=== PATIENT | female | born 1980 | race American Indian/Alaskan Native ===

== ENCOUNTER 2021-05-19 21:30 | Emergency (ER) | payer SELFPAY ==
[2021-05-20 00:57] VITALS: BP 114/54
[2021-05-20] MEDS ORDERED: ACETAMINOPHEN 500 MG TAB PO ONE (01:19)
[2021-05-20 01:46] LABS: Basophils # (Auto) 0.1 K/mm3 (0.0-0.1); Eosinophils # (Auto) 0.1 K/mm3 (0.0-0.4); Eosinophils % (Auto) 1.4 % (0.0-4.3); Lymphocytes # (Auto) 2.6 K/mm3 (1.2-5.4); Lymphocytes % (Auto) 33.5 % (13.4-35.0); Mean Corpuscular HGB Conc 30 % (30-34); Mean Corpuscular Volume 74 fl (79-97); Monocytes # (Auto) 0.6 K/mm3 (0.0-0.8); Platelet Count 329 K/mm3 (140-440)
[2021-05-20 01:59] LABS: Alanine Aminotransferase 9 units/L (7-56); Albumin 4.6 g/dL (3.9-5); Blood Urea Nitrogen 6 mg/dL (7-17); Hemolysis Index 29
[2021-05-20 02:04] LABS: BUN/Creatinine Ratio 9
[2021-05-20 03:09] LABS: Hematocrit 35.6 % (30.3-42.9); Hemoglobin 10.7 gm/dl (10.1-14.3)
--- NOTE | 2021-05-20 03:33 | Ultrasound Report ---
ULTRASOUND OBSTETRIC INDICATION / CLINICAL INFORMATION: Vaginal bleeding. Clinical Gestational Age (GA) in weeks, days: TECHNIQUE: Transabdominal. Transvaginal COMPARISON: None available. FINDINGS: UTERUS: Uterus is unremarkable measuring 7.1 x 3.3 x 5.1 cm. Endometrial stripe has a normal thicknes s of 6 mm. No gestational sac is identified within the uterus. ADNEXA: 7 mm cystic area noted within the right ovary most likely corpus luteal cyst. Left ovary has a normal appearance. No adnexal mass. FREE FLUID: None. ADDITIONAL FINDINGS: None. IMPRESSION: 1. No evidence of IUP at this time. 2. 7 mm cystic area within the right ovary is present, most likely is a corpus luteal cyst. 3. No adnexal mass or free fluid. Signer Name: Brooke Morales MD Signed: 05/20/2021 3:29 AM Workstation Name: [id number]
[2021-05-20 03:37] LABS: Color,Urine Yellow (Yellow)
[2021-05-20 03:38] LABS: Bilirubin,Urine Small (Negative); Blood,Urine Moderate (Negative)
[2021-05-20 03:42] LABS: Bacteria,Urine Negative /HPF (Negative); Mucus,Urine 1+ /HPF
--- NOTE | 2021-05-20 04:00 | Emergency Department Report ---
ED Female HPI - General Chief complaint: Vaginal Bleeding Stated complaint: 6 WEEKS PREG BLEEDING Source: patient Mode of arrival: Ambulatory Limitations: No Limitations - History of Present Illness Initial comments: Patient is a A0 40-year-old -[place] female who is approximately 6 weeks gestation presents to the ED with acute onset persistent pelvic pain and vaginal bleeding for the last 1 week. Patient states that she does not have any [facility] appointment until 29 May 2021. Patient states that the pain has been persistent as well as the vaginal bleeding which has been heavy necessitating her to use sanitary pads to contain the bleeding. Patient denies dizziness, traumatic injury, fall, dysuria, urinary frequency and urgency, nausea and vomiting or diarrhea, chest pain or shortness of breath, back pain or cough and vaginal discharge. MD Complaint: vaginal bleeding, pelvic pain, other (Approximately 6 weeks gestation) -: Sudden, week(s) (1) Location: suprapubic, other (vagina) Radiation: non-radiating Severity: moderate Severity scale (0 -10): 5 Quality: cramping, sharp Consistency: constant Improves with: none Worsens with: none Are you Now?: Yes (Approximately 6 weeks gestation) Associated Symptoms: denies other symptoms, vaginal bleeding, abdominal pain (Suprapubic pain). denies: vaginal discharge, nausea/vomiting, fever/chills, headaches, dysuria, hematuria, rash, seizure, weakness, other - Related Data Sexually active: Yes : 3 Para: 2 A: 0 Previous Rx's Medication Instructions Recorded Last Taken Type HYDROcodone/APAP 5-325 [[place] 1 each PO Q6HR #14 tablet 06/24/14 Unknown Rx 5-325 mg TAB] Allergies Allergy/AdvReac Type Severity Reaction Status Date / Time No Known Allergies Allergy Verified 06/24/14 03:32 ED Review of Systems ROS: Stated complaint: 6 WEEKS PREG BLEEDING Other details as noted in HPI Constitutional: denies: chills, fever Eyes: denies: eye pain, eye discharge, vision change ENT: denies: ear pain, throat pain Respiratory: denies: cough, shortness of breath, wheezing Cardiovascular: denies: chest pain, palpitations Endocrine: no symptoms reported Gastrointestinal: abdominal pain (Suprapubic pain). denies: nausea, vomiting, diarrhea Genitourinary: abnormal menses (Vaginal bleeding), other (Pelvic pain). denies: urgency, dysuria, discharge Musculoskeletal: denies: back pain, joint swelling, arthralgia Skin: denies: rash, lesions Neurological: denies: headache, weakness, paresthesias Psychiatric: denies: anxiety, depression Hematological/Lymphatic: denies: easy bleeding, easy bruising ED Past Medical Hx - Past Medical History Previous Medical History?: No - Surgical History Past Surgical History?: Yes Additional Surgical History: C-Sec x 1 - Social History Smoking Status: Never Smoker Substance Use Type: Alcohol - Medications Home Medications: Home Medications Medication Instructions Recorded Confirmed Last Taken Type HYDROcodone/APAP 5-325 [[place] 1 each PO Q6HR #14 tablet 06/24/14 Unknown Rx 5-325 mg TAB] ED Physical Exam - General Limitations: No Limitations General appearance: alert, in no apparent distress - Head Head exam: Present: atraumatic, normocephalic, normal inspection - Eye Eye exam: Present: normal appearance, PERRL, EOMI Pupils: Present: normal accommodation - ENT ENT exam: Present: normal exam, normal orophraynx, mucous membranes moist, TM's normal bilaterally, normal external ear exam - Neck Neck exam: Present: normal inspection, full ROM - Respiratory Respiratory exam: Present: normal lung sounds bilaterally. Absent: respiratory distress, wheezes, rales, rhonchi, chest wall tenderness - Cardiovascular Cardiovascular Exam: Present: regular rate, normal rhythm, normal heart sounds. Absent: systolic murmur, diastolic murmur, rubs, gallop - GI/Abdominal GI/Abdominal exam: Present: soft, tenderness (Palpable mild suprapubic tendernes s), normal bowel sounds. Absent: guarding, rebound, hypoactive bowel sounds, organomegaly - Bi-manual exam: Present: other (Pelvic exam deferred at this time) - Extremities Exam Extremities exam: Present: normal inspection, full ROM, normal capillary refill - Back Exam Back exam: Present: normal inspection, full ROM. Absent: tenderness, CVA tenderness (R), CVA tenderness (L), muscle spasm, paraspinal tenderness, vertebral tenderness - Neurological Exam Neurological exam: Present: alert, oriented X3, CN II-XII intact, normal gait, reflexes normal - Psychiatric Psychiatric exam: Present: normal affect, normal mood - Skin Skin exam: Present: warm, dry, intact, normal color. Absent: rash ED Course Vital Signs 05/20/21 00:52 Temperature 98.3 F Pulse Rate 71 Respiratory 17 Rate Blood Pressure 114/54 [Right] O2 Sat by Pulse 100 Oximetry ED Medical Decision Making - Lab Data Result diagrams: 05/20/21 01:30 05/20/21 01:30 - Radiology Data Radiology results: report reviewed, image reviewed [facility] [address] [place] [address] Ultrasound Report Signed Patient: ROSAMARIA HONG MR#: [id number] [birth year] : 1980 Acct:[id number] Age/Sex: 40 / F ADM Date: 05/19/21 Loc: ED Attending Dr: Ordering Physician: NAVEEN FERRARA Date of Service: 05/20/21 Procedure(s): US OB transvaginal Accession Number(s): [id number] cc: NAVEEN FERRARA ULTRASOUND OBSTETRIC INDICATION / CLINICAL INFORMATION: Vaginal bleeding. Clinical Gestational Age (GA) in weeks, days: TECHNIQUE: Transabdominal. Transvaginal COMPARISON: None available. FINDINGS: UTERUS: Uterus is unremarkable measuring 7.1 x 3.3 x 5.1 cm. Endometrial stripe has a normal thickness of 6 mm. No gestational sac is identified within the uterus. ADNEXA: 7 mm cystic area noted within the right ovary most likely corpus luteal cyst. Left ovary has a normal appearance. No adnexal mass. FREE FLUID: None. ADDITIONAL FINDINGS: None. IMPRESSION: 1. No evidence of IUP at this time. 2. 7 mm cystic area within the right ovary is present, most likely is a corpus luteal cyst. 3. No adnexal mass or free fluid. Signer Name: Brooke Morales MD Signed: 05/20/2021 3:29 AM Workstation Name: [id number] Transcribed By: JR Dictated By: Brooke Morales MD Electronically Authenticated By: Brooke Moarles MD Signed Date/Time: 05/20/21328 DD/ 4 TD/TT: Print - Medical Decision Making This is a A0 40-year-old -[place] female who is approximately 6 weeks gestation presents to the ED with acute onset persistent pelvic pain and vaginal bleeding for the last 1 week. Patient states that she does not have any [facility] appointment until 29 May 2021. Patient states that the pain has been persistent as well as the vaginal bleeding which has been heavy necessitating her to use sanitary pads to contain the bleeding. In the ED, patient is alert and oriented x3 and is not in any distress. Lab test results were reviewed and are all nonactionable except for gross blood in urinalysis, and hCG quant of 2259. The transvaginal ultrasound showed no evidence of IUP at this time. It however showed a 2. 7 mm cystic area within the right ovary which is present, most likely is a corpus luteal cyst. No adnexal mass or free fluid. These findings consistent with complete or miscarriage. Patient was therefore advised to maintain a complete pelvic rest and to follow- up within 48 hours with the [facility] physician or return to the ED for serial hCG quant to confirm the complete miscarriage. Patient advised return to the ED immediately if symptoms get worse. - Differential Diagnosis Threatened miscarriage; inevitable ; kidney stones; UTI; Critical care attestation.: If time is entered above; I have spent that time in minutes in the direct care of this critically ill patient, excluding procedure time. ED Disposition Clinical Impression: Spontaneous miscarriage, Vaginal bleeding in patient after first trimester, Cyst of right ovary EP (ectopic ) Qualifiers: Location of ectopic : unspecified location Intrauterine status: unspecified Qualified Code(s): O00.90 - Unspecified ectopic without intrauterine Disposition: 01 HOME / SELF CARE / HOMELESS Is pt being admited?: No Does the pt Need Aspirin: No Condition: Stable Instructions: Miscarriage, [id number], Ectopic , [id number], Ovarian Cyst, [id number] Additional Instructions: All lab test results were reviewed and showed hCG quant of 2259. Urinalysis showed significant blood in the urine. The rest of the lab test results were reviewed and are all nonactionable. The transvaginal ultrasound showed no evidence of IUP at this time, but a 2. 7 mm cystic area within the right ovary which is most likely is a corpus luteal cyst. There was no adnexal mass or free fluid. Therefore maintain a complete pelvic rest, follow-up with your [facility] physician or return to the ED within 48 hours for serial hCG quant test to ascertain the complete miscarriage or the viability of the given that the hCG quant is 2259 at this time. Otherwise return to the ED immediately if symptoms get worse. Referrals: BECCA NATH MD [Staff Physician] - 2-3 Days Time of Disposition: 04:06 Print Language: [id number]
== END 2021-05-20 04:57 | disposition home or self-care (01) ==
LOC: ED 21:30
DX: O03.9 Complete or unspecified spontaneous abortion without complication (principal); O46.91 Antepartum hemorrhage, unspecified, first trimester; N83.201 Unspecified ovarian cyst, right side; O00.90 Unspecified ectopic pregnancy without intrauterine pregnancy; F10.20 Alcohol dependence, uncomplicated
CPT/HCPCS: 36415; 76801; 76817; 80053; 81001; 84702; 85025; 86900; 86901; 99284